=== PATIENT | female | born 1930 | race Caucasian/White ===

== ENCOUNTER 2016-12-03 21:06 | Emergency (ER) | payer MEDICARE, OTHER ==
[~2016-12-03 21:06] MED LIST: Al Hydrox/Mg Hydrox/Simeth PO; CALC-243 PO; CETI10CA PO; CIPR-198 PO; DOCU-41 PO; FERR-83 PO; FLUT9.9S NS; MEMA5TAB PO; METR500T19 PO; OMEG10005 PO; OMEP20TA24 PO; POLY17PO6 PO; RIVA3CAP5 PO; ROSU5TAB PO; TRAZ-115 PO
[2016-12-03 21:18] VITALS: BP 132/64; PULSE 78; RESP 16; O2SAT 94
[2016-12-03 22:01] LABS: BASOPHILS % (AUTO) 0.4 % (0-3); EOSINOPHILS % (AUTO) 2.6 % (0-5); MONOCYTES % (AUTO) 7.6 % (4-12); Mean Corpuscular Hemoglobin 32.5 pg (27.0-35.0); NEUTROPHILS % (AUTO) 68.5 % (40-74); Platelet Count 198 bil/L (150-400)
[2016-12-03 22:17] LABS: APPEARANCE,URINE CLEAR (CLEAR,HAZY); COLOR,URINE YELLOW (YELLOW); OCCULT BLOOD,URINE LARGE (NEGATIVE); PH,URINE 5.5 (5.0-8.0)
--- NOTE | 2016-12-03 23:55 | ED.REPORT ---
HPI-General Illness Date of Service Dec 03, 2016 ED Provider: Kevin Stone MD Pt is an 86 year old female with a hx of advanced Alzheimer's, DVT, chronic anemia, and diverticulitis presenting to the ED via EMS from [facility] due to a concern for dehydration. Medics report decreased oral intake in the last 5 days, decreased urination, increased confusion and increased combativeness. HPI limited secondary to patient condition. Nursing Notes Stated Complaint: CONCERN FOR DEHYDRATION Chief Complaint: General Complaint Nursing Notes Reviewed: Yes Allergies: Coded Allergies: lovastatin (Verified Allergy, Intermediate, weakness, 03/26/13) amoxicillin (Verified Allergy, Unknown, 04/21/14) cephalexin (Verified Allergy, Unknown, 04/21/14) trimethoprim (Verified Allergy, Unknown, 04/21/14) pravastatin (Verified Adverse Reaction, Unknown, 10/24/13) Uncoded Allergies: CEFUROXIMINE (Allergy, Severe, 03/26/13) AXETIL (Allergy, Unknown, 04/21/14) MONOHYDRATE (Allergy, Unknown, 04/21/14) SULFA (Adverse Reaction, Intermediate, 03/26/13) Scheduled Cetirizine HCl (Zyrtec) 10 Mg Capsule 10 MG PO DAILY Ciprofloxacin (Ciprofloxacin) 500 Mg Tablet 500 MG PO BID Ferrous Sulfate (Ferrous Sulfate) 325 Mg Tablet 325 MG PO BID Fluticasone Propionate (Flonase Allergy Relief) 50 Mcg/Actuation [place].susp 9.9 ML NS BID Memantine HCl (Namenda) 5 Mg Tablet 10 MG PO BID Metronidazole (Metronidazole) 500 Mg Tablet 500 MG PO TID Omeprazole Magnesium (Prilosec Otc) 20 Mg Tablet.dr 20 MG PO DAILY Rivastigmine (Rivastigmine) 3 Mg Capsule 3 MG PO BIDWM Rosuvastatin Calcium (Crestor) 5 Mg Tablet 5 MG PO DAILY Trazodone (Trazodone) 50 Mg Tablet 50 MG PO HS Scheduled PRN ([Al Hydrox/Mg Hydrox/Simeth]) 30 ML SUSP 30 ML PO Q6H PRN PRN For Dyspepsia or Heartburn Docusate Sodium (Colace) 100 Mg Capsule 100 MG PO DAILY PRN PRN For Constipation Polyethylene Glycol 3350 (Miralax) 17 Gm Powd.pack 17 GM PO DAILY PRN PRN For Constipation Trazodone (Trazodone) 50 Mg Tablet 50 MG PO HS PRN PRN Insomnia Miscellaneous Medications Calcium Carbonate/Vitamin D3 (Calcium 600 + Vit D Tablet) 1 Each Tablet 1 EACH PO Delta-3 Fatty Acids (Delta-3) 1,000 Mg Capsule 1,000 MG PO General Time Seen by MD: 23:13 Chief Complaint Other (Dehydration) Hx Obtained From: EMS Arrived By: Ambulance Sudden in Onset?: No Onset Occurred: 5 days ago Symptom Duration: Since onset Recent Healthcare: No recent doctor visit, No recent hospitalization Similar Sx Previous: No Past Medical History Past Medical History Nephrolithiasis Dementia breast cancer - 20 years ago DVT chronic anemia diverticulitis Past Surgical History Reports: Appendectomy Family History non-contributory Smoking History Former Smoker Social History Son checks in on her daily Alcohol Use: "Social" Drug Use: Denies drug use Other Social History: Good social support, Lives alone, Local resident Ambulatory Status Independent Review of Systems Unable to Obtain ROS Mental status Physical Exam Vital Signs Vital Signs Date Time Temp Pulse Resp B/P Pulse Ox O2 Delivery O2 Flow Rate FiO2 12/04/16 03:33 36.8 69 15 141/76 97 Room Air 12/04/16 01:26 55 15 131/63 94 Room Air 12/04/16 00:18 61 18 142/76 94 Room Air 12/03/16 21:18 37.0 78 16 132/64 94 Room Air Initial VS: Reviewed Head / Eyes: Atraumatic, Normocephalic, PERRL Respiratory: Breath sounds normal, Clear to auscultation, No respiratory distress Cardiovascular: Regular rate & rhythm, Heart sounds normal, Intact distal pulses Extremities: Vascular intact, Neuro intact, No swelling, No tenderness Skin: Warm, Dry, No cyanosis Psychiatric: Mood/affect normal, Behavior normal, Normal thought content General/Constitutional: Awake, Alert Demented, thin and appears dry ENT: Atraumatic Mouth: Positive: Mucous membranes dry Neck: Atraumatic Tiny mass on left side of paraphyngeal area. Abdomen: Atraumatic, Soft Tenderness/Guarding/Rebound: Positive: Tender diffuse (Slightly) Resistant to exam Neurologic: Speech NL, No motor deficits Interpretation & Diagnostics Lab Results Interpretation Result Diagram: 12/03/16 2156 12/03/16 2156 Test 12/03/16 21:56 12/03/16 21:57 12/04/16 00:00 White Blood Count 5.4th/mm3 (3.8-10.1) Red Blood Count 4.59mil/mm3 (3.90-5.20) Hemoglobin 14.9g/dL (12.0-15.6) Hematocrit 43.6% (35.0-46.0) Mean Corpuscular Volume 95.0fL (81-100) Mean Corpuscular Hemoglobin 32.5pg (27.0-35.0) Mean Corpuscular Hemoglobin Concent 34.2% (32.0-37.0) Red Cell Distribution Width 12.4% (12.3-15.4) Platelet Count 198bil/L (150-400) Neutrophils (%) (Auto) 68.5% (40-74) Lymphocytes (%) (Auto) 20.7% (14-46) Monocytes (%) (Auto) 7.6% (4-12) Eosinophils (%) (Auto) 2.6% (0-5) Basophils (%) (Auto) 0.4% (0-3) Urine Color Yellow (YELLOW) Urine Appearance Clear (CLEAR,HAZY) Urine pH 5.5 (5.0-8.0) Urine Specific [place] 1.030 (1.003-1.035) Urine Protein Negativemg/dL (NEG,TRACE) Urine Glucose (UA) Negativemg/dL (NEGATIVE) Urine Ketones Negativemg/dL (NEGATIVE) Urine Occult Blood Large (NEGATIVE) Urine Nitrite Negative (NEGATIVE) Urine Bilirubin Negative (NEGATIVE) Urine Urobilinogen 1.0mg/dL (NORMAL) Urine Leukocyte Esterase Negative (NEGATIVE) Urine RBC 3-10/hpf (0-2) Urine WBC 0-5/hpf (0-5) Urine Epithelial Cells Moderate/hpf (NONE-MOD) Urine Crystals None seen (NONE SEEN) Urine Bacteria Few/hpf (NONE-FEW) Urine Hyaline Casts None/lpf (NONE) Urine Granular Casts None seen (NONE SEEN) Urine Waxy Casts None seen (NONE SEEN) Urine Red Blood Cell Casts None seen (NONE SEEN) Urine White Blood Cell Casts None seen (NONE SEEN) Urine Mucus None seen (None Seen) Urine Trichomonas None seen (NONE SEEN) Urine Yeast None (NONE SEEN) Urinalysis Comment None Urine Culture Reflexed Not indicated Sodium Level 143mEq/L (134-144) Potassium Level 3.8mEq/L (3.5-5.2) Chloride Level 105mEq/L (97-108) Carbon Dioxide Level 23mmol/L (18-29) Blood Urea Nitrogen 20mg/dL (8-27) Creatinine 0.89mg/dL (0.57-1.00) Estimat Glomerular Filtration Rate 87mL/min (>59) Glucose Level 111mg/dL (60-99) Calcium Level 10.6mg/dL (8.5-10.1) Total Bilirubin 0.6mg/dL (0.0-1.2) Aspartate Amino Transf (AST/SGOT) 18U/L (0-50) Alanine Aminotransferase (ALT/SGPT) 9U/L (0-32) Alkaline Phosphatase 63U/L (25-165) Total Protein 6.7g/dL (6.4-8.4) Albumin 3.7g/dL (3.4-5.0) Hold Covarrubias Top Tube Received (Received) Thyroid Stimulating Hormone (TSH) 1.620uIU/mL (0.450-4.500) Free Thyroxine 1.66ng/dL (0.82-1.77) ECG Interpretation ECG Interpretation: Left axis deviation. Probable anteroseptal infarct, old. Time: 23:57 Interpreted by: ED physician Normal ECG Interpretation: Normal rate (69), Normal sinus rhythm X-Ray Chest Interpretation Chest Xray Interpretation: Negative. View: Portable, 1 view Interpretation / Wet Read by: Wet read ED physician CT Head Interpretation CONCLUSION: Diffuse atrophy and periventricular white matter disease (leukoaraiosis) without CT evidence of acute intracranial pathology at this time. This report was transmitted to the emergency room at 12/04/2016 - 12:22:42 AM PDT. Study: Head CT no contrast Interpretation / Wet Read by: Interpret - Radiologist Re-Eval/Medical Decision Med Decision/Clinical Course A 6-year-old female presents after decrease in by mouth intake at the half-way. She has baseline dementia apparently somewhat worse. Evaluation here does not reveal a source of her altered mental status. She has no evident UTI, no pneumonia, no [place], and is metabolically benign by laboratory. No indication for hospital treatment. She has a DO NOT RESUSCITATE no artificial fluids or nutritional support desired. Discussed with the nurse at the half-way and she will be returned therefore ongoing management. Time of Eval: 02:38 Patient Status: Condition improved Re-Evaluation/Progress Note: Discussed radiology, CT and lab results. Discussed plan for discharge. Counseled Regarding: Diagnosis, Lab results, Need for follow-up, When/why to return to ED Discharge & Departure Primary Impression: Altered mental status Altered mental status type: unspecified Qualified Code: R41.82 - Altered mental status, unspecified Additional Impression: Dementia Dementia type: unspecified type Dementia behavioral disturbance: without behavioral disturbance Qualified Code: F03.90 - Unspecified dementia without behavioral disturbance Disposition: Home Discharge Condition All VS Reviewed: Yes Condition: Improved Patient Instructions: Dementia (ED) Additional Instructions: We find no reversible cause for her altered mental status. Her workup tonight included a urinalysis showing no infection, x-ray, showing no pneumonia, a CAT scan of the brain, showing significant degenerative disease, but no acute bleed or stroke. Metabolically she is relatively intact, and there is no reversible cause discovered. She is clinically dry, as you would expect for someone who is refusing to eat and drink. This may be the expected outcome of her dementia. She has a DO NOT RESUSCITATE/polst form detailing that artificial nutrition support is not desired. We have no other immediately treatable cause for her problem, and therefore no cause for hospitalization. Follow-up with her physician this week. Referrals: Smitha Frye MD (PCP) Scribe Attestation Portions of this note were transcribed by Dorina Aquino. I, Dr. Stone personally performed the history, physical exam and medical decision-making; I reviewed and confirmed the accuracy of the information in the transcribed note. Signed by: Sarah Romano, 12/03/2016. copies to: Smitha Frye MD, Christopher W MD Dec 03, 2016 23:55 DORINA AQUINO Dec 03, 2016 23:59
[2016-12-04 00:18] VITALS: BP 142/76; PULSE 61; RESP 18; O2SAT 94
[2016-12-04 01:26] VITALS: BP 131/63; PULSE 55; RESP 15; O2SAT 94
[2016-12-04] MEDS ORDERED: 0.9% Sodium Chloride 1,000 ML IV ONE (01:40)
[2016-12-04 03:33] VITALS: BP 141/76; PULSE 69; RESP 15; O2SAT 97
--- NOTE | 2016-12-04 08:12 | DRSVH ---
PROCEDURE: CT BRAIN WITHOUT CONTRAST ([id number]) INDICATIONS: ALTERED MS TECHNIQUE: Noncontrast 4.5 mm thick angled axial sections acquired from the foramen magnum to the vertex, with c oronal reformats. COMPARISON: [facility], CT, CT BRAIN WO CON, 11/14/2015, 2:22. FINDINGS: Image quality: Good CSF spaces: Basal cisterns are patent. No extra-axial fluid collections. The ventricles are symmet farrah in size and shape. Brain: No intracranial bleeds or masses. There is cerebral volume loss for age, with resultant vent ricular and sulcal prominence. There are periventricular and deep white matter chronic small vessel ischemic changes. There is intracranial internal carotid artery atherosclerosis. Skull and face: Calvarium and visualized facial bones appear intact, without suspicious lesions. Sinuses: Visualized sinuses and mastoids are clear. IMPRESSION: 1. No acute intracranial abnormality. 2. Moderate atrophic change and microvascular ischemic change of aging are present as before. Dictated by: Chicho Oakley M.D. on 12/04/2016 at 8:08 Approved by: Chicho Oakley M.D. on 12/04/2016 at 8:11
--- NOTE | 2016-12-04 08:53 | DRSVH ---
PROCEDURE: X-RAY CHEST ONE VIEW, PORTABLE ([id number]) INDICATIONS: altered mental status TECHNIQUE: One view of the chest was acquired. COMPARISON: [facility], CR, XR CHEST 1VW (PORTABLE), 11/19/2015, 22:38. FINDINGS: Surgical changes and devices: monitor worker leads are seen over the chest. Lungs and pleura: No pleural effusions or pneumothorax. Lungs are clear of acute focal infiltrates. There are increased chronic markings at the lung bases.. Mediastinum: Mediastinal contours appear normal. Heart size is normal. Bones and chest wall: No suspicious bony lesions. Overlying soft tissues appear unremarkable. IMPRESSION: Acute disease is not seen in this semiupright portable chest. Dictated by: Chicho Oakley M.D. on 12/04/2016 at 8:51 Approved by: Chicho Oakley M.D. on 12/04/2016 at 8:51
== END 2016-12-04 03:38 | disposition home or self-care (01) ==
LOC: EDUNIT# 21:06 → EDBD 21:06 → SED 21:06
DX: R41.82 Altered mental status, unspecified (principal); G30.8 Other Alzheimer's disease; F02.80 Dementia in other diseases classified elsewhere, unspecified severity, without behavioral disturbance, psychotic disturbance, mood disturbance, and anxiety; Z87.891 Personal history of nicotine dependence; Z88.1 Allergy status to other antibiotic agents; Z88.8 Allergy status to other drugs, medicaments and biological substances
CPT/HCPCS: 36415; 70450; 71010; 80053; 81000; 84439; 84443; 85025; 93005; 96360; 99285; J7030